=== PATIENT | male | born 1970 | race Caucasian/White ===

== ENCOUNTER 2016-10-31 07:29 | Emergency (ER) | payer SELFPAY ==
--- NOTE | 2016-11-01 10:00 | ER ---
ADMIT: 10/31/2016 RM/LOC: ER [facility] MR#: [id number] 2620 [facility] [address] [place], [place] [address] KATHIE GUTHRIE [address] [place] [address] Emergency Room Report SEX: M AGE: 46 : 1970 DATE: 10/31/2016 ADDENDUM: A 46-year-old white male coming in with back pain on his left flank. CT done for renal colic, this was negative, mainly stool. His urine had a few red cells but for his age, that is not abnormal. He does have chronic back pain as well as chronic pain disorder. At this time, we gave him Toradol 60 IM and discharged home. He can continue using [id number] medications for this, suggested maybe has a little constipation problems as well. CONDITION ON DISCHARGE: Improved. Pascual Davis MD/ lorena JOB #: [id number] CC: Pascual Davis MD, Attending Physician Tico Pagan MD, Family Physician
== END 2016-10-31 11:20 | disposition home or self-care (01) ==
LOC: ER 07:29
DX: M54.5 Low back pain (principal); G89.29 Other chronic pain; Z88.0 Allergy status to penicillin; Z88.8 Allergy status to other drugs, medicaments and biological substances; Z79.899 Other long term (current) drug therapy

== ENCOUNTER 2016-11-07 01:43 | Emergency (ER) | payer SELFPAY ==
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
== END 2016-11-07 03:30 | disposition home or self-care (01) ==
LOC: ER 01:43
DX: K59.00 Constipation, unspecified (principal); I10 Essential (primary) hypertension; Z87.442 Personal history of urinary calculi; Z88.0 Allergy status to penicillin; Z98.890 Other specified postprocedural states; Z79.899 Other long term (current) drug therapy

== ENCOUNTER 2016-11-07 19:29 | Inpatient (IN) | payer SELFPAY ==
[~2016-11-07] VITALS: Ht 177.8 cm; Wt 81.9 kg
--- NOTE | ~2016-11-07 | ECH ---
Transesophageal Echocardiography Report (TRENT) Demographics Patient Name JERRI, Date of Study 11/15/2016 KATHIE García Patient Number [id number] Visit Number [id number] Date of 1970 Room Number 529 Accession Number [id number] Gender Male Age 46 year(s) Referring Elissa Menjivar Construction Materials Tester Mariah Otto [facility] Physician Graham Terrazas MD Physician Interpreting Alicia ULLOA Certified Detention Deputy Physician Jose Supervising Ordering Physician Graham Terrazas MD/CORAL ULLOA Nurse Andreas Lopez Stress Technical Applications Scientist Conclusions Contractility Score Summary Normal Left Ventricular contractility was noted. Summary The estimated left ventricular ejection fraction is 55%. Mild left atrial enlargement. Normal valves with no evidence of endocarditis. Trivial mitral regurgitation. Aneurysmal interatrial septum. No evidence of atrial septal defect or patent foramen ovale by saline bubble study . Recommendation The patient was given the results of the exam during their hospital stay. Procedure Type of Study TRENT procedure:TRENT SF. Procedure Date Date: 11/15/2016 Start: 10:04 AM Technical Quality: Good visualization Additional Indications:bacteremia Appropriate Use Criteria: 9 Height: 70 inches Weight: 205 pounds BSA: 2.11 m Rhythm: Within normal limits HR: 98 bpm BP: 105/71 mmHg TRENT Performed By: Jose Vargas MD Type of Anesthesia: Moderate sedation Signature
--- NOTE | ~2016-11-07 | ECH ---
Transthoracic Echocardiography Report (TTE) Demographics Patient Name JERRI, Date of Study 11/09/2016 KATHIE García Patient Number [id number] Visit Number [id number] Date of 1970 Room Number 529 Accession Number [id number] Gender Male Age 46 year(s) Referring Elissa Menjivar Emergency Dispatch Operator Mariah Otto [facility] Physician Graham Terrazas MD Physician Interpreting Alicia ULLOA Assistant Education Director Physician Jose Supervising Ordering Physician Graham Terrazas MD/CORAL ULLOA Nurse Stress Sales Service Manager Conclusions Contractility Score Summary Normal Left Ventricular contractility was noted. Summary Technically adequate exam. The estimated left ventricular ejection fraction is 65%. Mild septal left ventricular hypertrophy. The left atrium is mildly dilated by LA volume index measurement. No significant valvular abnormalities. Recommendation The patient will be given the results of this study by the physician who ordered the exam. Procedure Type of Study TTE procedure:Echo Complete SF. Procedure Date Date: 11/09/2016 Start: 12:01 PM Technical Quality: Adequate visualization Indications:Fever of unknown origin. Additional Indications:bacteremia Appropriate Use Criteria: 9 Height: 70 inches Weight: 205 pounds BSA: 2.11 m Rhythm: Within normal limits HR: 81 bpm BP: 155/98 mmHg M-Mode/2D Measurements LV Diastolic Dimension: 5.76 cm LV Systolic Dimension: 3.75 cm LV Septum Diastolic: 1.12 cm LV PW Diastolic: 1.01 cm AO Root Dimension: 2.75 cm Cardiac Output: 6.8 l/min LA Dimension: 4.23 cm Cardiac Index: 3.22 l/min*m RV Diastolic Dimension: 2.64 cm LA volume index: 36 ml/m LVOT: 2.22 cm LVOT VTI: 21.7 cm RV Base: 3.3 cm LV Stroke volume: 83.95 ml RV Mid: 2.4 cm LV Stroke volume index: 39.79 ml/m RV Length: 7.8 cm TAPSE: 2.8 cm TDI-S': 15 cm/s Doppler Measurements AV Peak Velocity: 1.37 m/s MV Peak E-Wave: 1.06 m/s AV Peak Gradient: 7.51 mmHg MV Peak A-Wave: 0.94 m/s AV Mean Gradient: 4.35 mmHg MV E/A Ratio: 1.13 LVOT Peak Velocity: 1.12 m/s MV P1/2t: 50.9 msec AV Area (Continuity):3.63 cm MV Deceleration Time: 198.9 msec MV Area (PHT): 4.32 cm PV Peak Velocity: 0.91 m/s PV Peak Gradient: 3.33 mmHg RA Area: 15.97 cm Findings Left Ventricle The left ventricle is normal in size . Mild septal left ventricular hypertrophy. Diastolic assessment reveals normal relaxation. Right Ventricle Normal right ventricle structure and function. Left Atrium The left atrium is mildly dilated by LA volume index measurement. Right Atrium Normal right atrial size. Mitral Valve Normal mitral valve structure and function. Trivial mitral regurgitation by color Doppler. Aortic Valve Normal aortic valve structure and function. Tricuspid Valve Normal tricuspid valve structure and function. Pulmonic Valve Normal pulmonic valve structure and function. Pericardial Effusion No evidence of pericardial effusion. Miscellaneous Visualized portions of the aortic root and ascending aorta appear normal in size. Pleural Effusion No evidence of pleural effusion. Contractility Score LV regional wall motion:(0-Non visualized 1-Normal 2-Hypokinesis 3-Akinesis 4-Dyskinesis 5-Aneurysm) Signature
--- NOTE | ~2016-11-07 | CO ---
ADMIT: 11/07/2016 RM/LOC: 529 [facility] MR#: [id number] 2620 [facility] [address] [place], [place] [address] KATHIE GUTHRIE [address] [place] [address] Consultation SEX: M AGE: 46 : 1970 DATE OF CONSULTATION: 11/08/2016 ATTENDING PHYSICIAN: Josue Bowers MD CONSULTING PHYSICIAN: Josue Harmon MD REASON FOR CONSULTATION: Originally is anemia. You can see full dictated consult by ZAHRAA Jorge. Pavan is a 46-year- old male, who I have seen here. We were consulted like I said for anemia, but looked like his hemoglobin had dropped but now it is basically normal. The other thing with him he has significant constipation, not having a bowel movement, when he says for almost 2 weeks. Because of some back pain, he took some Percocet over the weekend for some chronic back pain. Says otherwise he does not routinely have problems with taking Percocet like that. At the time when I see him, the nurses report that he is spiking any fever, however, he tells me he is feeling better. He is less distended, does not have as much pain. He has bowel sounds. He is distended and maybe some diffuse pain but there are no acute findings in his abdomen currently by clinical exam. At this point he has, like I said, a longstanding history of some pain issues for his back. As I look through things, it looks like he had previous laparoscopic bilateral hernia repairs done by Dr. Wero guerrier in 2014. Multiple ER visits. At this point, like I said, he seems to be feeling a little bit of relief with the enema. His exam is fairly benign. Dr. Bowers is ordering some extra labs, brought in his antibiotics although I do not think we know exactly what we are covering by any means as we have no obvious source. His hemoglobin being stable, I do not think we need to jump into a colonoscopy right away. Obviously, he is going to need to get his bowels cleaned out and just starting to get those to move, but I do not know of if he needs to stay in the hospital for that as well unless we see some evidence of drop in his hemoglobin or blood in the stools. We will follow him along while he is here. Josue Harmon MD/ lorena JOB #: [id number] CC: Josue Bowers MD, Attending Physician Josue Bowers MD, Family Physician Josue Bowers MD
--- NOTE | 2016-11-12 12:25 | CO ---
ADMIT: 11/07/2016 RM/LOC: 529 [facility] MR#: [id number] 2620 [facility] [address] [place], [place] [address] KATHIE GUTHRIE [address] [place] [address] Consultation SEX: M AGE: 46 : 1970 DATE OF CONSULTATION: 11/08/2016 ATTENDING PHYSICIAN: Josue Bowers MD CONSULTING PHYSICIAN: Josue Harmon MD REASON FOR CONSULTATION: Anemia. HISTORY OF PRESENT ILLNESS: Pavan is a very pleasant 46-year-old male, who has been admitted to the ER for increased abdominal pain. Apparently, the patient has not been able have a bowel movement going on two weeks. His abdominal pain is throughout his abdomen and sharp in nature. He denies having any prior events like this before. Of note, he did have some low back pain on Monday for which he took 4 Percocet's for. Apparently, he had line around from previous surgery. He further denies any emesis, dark or bloody stools, shortness of breath, weakness, or lightheadedness. He does feel nauseous today, and the pain in his abdomen does kind of take his breath away. PAST MEDICAL HISTORY: Significant for: 1. Hypertension. 2. Anxiety. PAST SURGICAL HISTORY: 1. Right inguinal laparoscopic hernia repair performed by Dr. Conteh. 2. No prior EGDs or colonoscopies. ALLERGIES: PENICILLIN. MEDICATIONS: Well documented in chart. FAMILY HISTORY: Noncontributory. SOCIAL HISTORY: The patient denies any tobacco, alcohol, or illicit drug use. REVIEW OF SYSTEMS: CONSTITUTIONAL: The patient states some night sweats that have been going on for several months, but denies any fevers or chills. The rest of a comprehensive 10-point review of systems was performed and all other systems are negative. PHYSICAL EXAMINATION: GENERAL: The patient is in no acute distress. He is alert and oriented. HEENT: Head is normocephalic and atraumatic. EOMS are intact. Conjunctivae free of icterus, erythema, or pallor. Pinnae, free of deformities. Nose, midline. No tracheal deviation. NECK: Supple. SKIN: Negative for jaundice, clubbing, edema, pallor, or cyanosis. LUNGS: Normal respiratory effort. HEART: Distal pulses are intact. Regular rate and rhythm. ABDOMEN: Distended and tender diffuse throughout abdomen. Surgical scar ADMIT: 11/07/2016 RM/LOC: 529 [facility] MR#: [id number] [address] [address] KATHIE GUTHRIE [address] [address] Consultation SEX: M AGE: 46 : 1970 noted at the umbilicus, consistent with laparoscopic hernia repair. NEURO: Grossly intact. LABORATORY DATA: Hemoglobin improved to 11.6. ASSESSMENT: 1. Anemia. 2. Constipation. PLAN: As of now, with the patient's hemoglobin improving, we will be happy to do an outpatient colonoscopy for him. I discussed this plan with the patient which he has agreement of this plan, had all his questions answered, would like to proceed. Dr. Maritza Sprague is starting him on a bowel prep for constipation, which we endorse and hopefully get good results with that. Thanks for the consultation of this patient. ZAHRAA Jorge / Josue Harmon MD / modl JOB #: [id number] CC: Josue Bowers MD, Attending Physician Josue Bowers MD, Family Physician
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
[2016-11-22] MEDS ORDERED: ZESTRIL DPS10 MG PO (19:03)
[2016-11-22] MEDS ORDERED: KLONOPIN DPS1 MG PO (19:03)
[2016-11-22] MEDS ORDERED: COLACE-DPS100 MG PO (19:03)
[2016-11-22] MEDS ORDERED: MIRALAX PACKET17 GM PO (19:04)
[2016-11-22] MEDS ORDERED: FLEXERIL-DPS10 MG PO (19:04)
[2016-11-22] MEDS ORDERED: MS CONTIN DPS15 MG PO (19:04)
[2016-11-22] MEDS ORDERED: NICOTINE PATCH1 EAC1 TD (19:05)
[2016-11-22] MEDS ORDERED: PEPCID DPS20 MG PO (19:05)
[2016-11-22] MEDS ORDERED: ROCEPHIN DPS2 GM IV (19:07)
[2016-11-22] MEDS ORDERED: LIDOCREAM15 GM TP (19:07)
[2016-11-22] MEDS ORDERED: KLONOPIN DPS0.5 MG PO (19:08)
[2016-11-22] MEDS ORDERED: BENADRYL-DPS25 MG PO (19:08)
[2016-11-22] MEDS ORDERED: MAALOX DPS30 ML PO (19:10)
[2016-11-22] MEDS ORDERED: OXY IR DPS10 MG PO (19:11)
[2016-11-22] MEDS ORDERED: NEURONTIN DPS300 MG PO (19:11)
[2016-11-22] MEDS ORDERED: TYLENOL DPS325 MG PO (19:11)
[2016-11-22] MEDS ORDERED: NORMAL SALINE FL5 ML IV (19:12)
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
--- NOTE | 2016-12-17 13:06 | DS ---
ADMIT: 11/09/2016 RM/LOC: 529 [facility] MR#: [id number] [address] [place], [place] [address] KATHIE GUTHRIE [address] [place] [phone] General Discharge Summary SEX: M AGE: 46 : 1970 ADMISSION DATE: 11/09/2016 DISCHARGE DATE: 11/22/2016 CONSULTANTS: General Surgery, Infectious Disease, Neurosurgery, and Pain Management. PROCEDURES: Paravertebral biopsy, PICC line placement. FINAL DIAGNOSES: 1. MSSA bacteremia. 2. Paravertebral mass. 3. Osteomyelitis. 4. Ileus causing constipation. HISTORY OF PRESENT ILLNESS: The patient came in with acute abdominal pain, constipation, and low back pain. He said he had not had a bowel movement for over 2 weeks. He does mention that he recently took some leftover Percocet that he had. He had been trying enemas, suppositories, and had even been given a dose of Relistor in the ER, but he had minimal release, so he returned to the ER with the same complaints at that time. We admitted him to have further constipation management as well as the patient had a decrease in patient hemoglobin. It was 10.6 on date of admission, while the day prior, it was 11.8. HOSPITAL COURSE: The patient had had workup for blood cultures, became positive for methicillin-sensitive Staph aureus. He was started initially on IV vancomycin and Bactrim, but he continued to have fevers, so Infectious Disease was consulted. The patient was then started on cefazolin 2 g q.8 hours IV instead of the vancomycin and Bactrim. Workup was done for source of infection. CTA was negative. The patient also had two echoes throughout the hospital stay. No signs of endocarditis or abnormalities on the patient's heart valves. Ultimately, source of infection was not found, but of note, the patient's girlfriend does have chronic Staph infections which at least could be a possible exposure. PICC line was placed for long-term antibiotics. Ultimately, he was sent out with outpatient antibiotics for at least 6-8 weeks and follow up with Dr. Stevenson. Constipation. The patient was found have an ileus. Initially, we were concerned about the hemoglobin drop, but that remained stable throughout the admission after that initial draw. The patient received multiple doses of stool softeners, osmotic laxatives, etc. that did allow him to have some bowel movements. Throughout the stay, the patient continued to complain of low back pain and he continued to have these fevers, so Neurosurgery was consulted. We had ordered an MRI that showed evidence of lumbar spondylosis with a Schmorl node and a reduction in disk height L1-L2 and L2-L3. There is also an L2 hemangioma and also some abnormal signals at the T10 to T11 area as well as some soft tissue enhancement on the left paravertebral region. There was concern for possible abscess versus osteomyelitis. 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 UPEP and SPEP were also done, which were normal. The patient had a biopsy from [facility], showed that there were plasma cells in the soft tissue area. They also noticed some acute on chronic osteomyelitis and the T10 bone sample. 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 They felt that it is more likely consistent with his osteo. Further workup for cause of infection included hepatitis panel, HIV, which were all normal. The patient continued to have this low back pain throughout the stay even with resolvement of his constipation and improvement with antibiotics for his fever. Dr. Andrade from Pain Management was consulted and he put the patient on a specific pain regimen which did seem to provide some relief. Summary of patient's hospital stay shows that patient had MSSA bacteremia and also osteomyelitis, which patient was discharged on IV antibiotics for treatment. The patient was also found to have some degenerative disease and spondylosis of his lower spine. The patient was seen by both Neurosurgery and Pain Management, and ultimately patient was sent out on pain medication regimen. DISCHARGE MEDICATIONS: Medications at time of discharge include: 1. Rocephin 2 g IV q.12 hours for 6 weeks. 2. Colace 200 mg daily. 3. Flexeril 10 mg t.i.d. 4. Klonopin 1 mg b.i.d. 5. MiraLax 17 g b.i.d. 6. Pepcid 20 mg b.i.d. 7. Zestril 10 mg p.o. daily. 8. Habitrol 21 mg patch daily. 9. Lidocaine cream b.i.d. 10.Benadryl 25 mg p.o. q.6 hours p.r.n. 11.Klonopin 0.5 mg daily p.r.n. 12.Maalox q.6 hours p.r.n. 13.Neurontin 300 mg p.o. q.i.d. p.r.n. 14.OxyIR DBS 10 mg p.o. q.5 hours. 15.Tylenol 650 mg p.r.n. q.4 hours as needed. Also was sent out on normal saline flushes for PICC line. The patient had outpatient IV antibiotics set up. He also is to follow up with Infectious Disease as an outpatient. CODE STATUS: Full. Maritza Sprague MD Resident / Josue Bowers MD / lorena JOB #: [id number] CC: Josue Bowers MD, Attending Physician Josue Bowers MD, Family Physician
== END 2016-11-22 13:35 | disposition home or self-care (01) | DRG 478 ==
LOC: ER 19:29 → 5MS 23:00
PROVIDERS: ADMIT Family Medicine
PROC: 0KBJ3ZX Excision of Left Thorax Muscle, Percutaneous Approach, Diagnostic (ICD-10-PCS; principal; 2016-11-14)
PROC: 0PB43ZX Excision of Thoracic Vertebra, Percutaneous Approach, Diagnostic (ICD-10-PCS; principal; 2016-11-14)
PROC: 02HV33Z Insertion of Infusion Device into Superior Vena Cava, Percutaneous Approach (ICD-10-PCS; 2016-11-17)
DX: M46.24 Osteomyelitis of vertebra, thoracic region (principal); K56.7 Ileus, unspecified; I10 Essential (primary) hypertension; M46.44 Discitis, unspecified, thoracic region; R10.13 Epigastric pain; K59.00 Constipation, unspecified; F41.9 Anxiety disorder, unspecified; F10.21 Alcohol dependence, in remission; D64.9 Anemia, unspecified; F17.290 Nicotine dependence, other tobacco product, uncomplicated; M51.36 Other intervertebral disc degeneration, lumbar region; E87.6 Hypokalemia; B95.61 Methicillin susceptible Staphylococcus aureus infection as the cause of diseases classified elsewhere; D72.822 Plasmacytosis

== ENCOUNTER 2016-12-20 19:36 | Emergency (ER) | payer SELFPAY ==
[~2016-12-20 19:36] MED LIST: BENADRYL-DPS25 MG PO; COLACE-DPS100 MG PO; FLEXERIL-DPS10 MG PO; KLONOPIN DPS0.5 MG PO; KLONOPIN DPS1 MG PO; LIDOCREAM15 GM TP; MAALOX DPS30 ML PO; MIRALAX PACKET17 GM PO; MS CONTIN DPS15 MG PO; NEURONTIN DPS300 MG PO; NICOTINE PATCH1 EAC1 TD; NORMAL SALINE FL5 ML IV; OXY IR DPS10 MG PO; PEPCID DPS20 MG PO; ROCEPHIN DPS2 GM IV; TYLENOL DPS325 MG PO; ZESTRIL DPS10 MG PO
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
== END 2016-12-20 23:06 | disposition home or self-care (01) ==
LOC: ER 19:36
DX: R52 Pain, unspecified (principal); R78.81 Bacteremia; M46.40 Discitis, unspecified, site unspecified; F41.9 Anxiety disorder, unspecified; I10 Essential (primary) hypertension; F17.200 Nicotine dependence, unspecified, uncomplicated; Z79.899 Other long term (current) drug therapy; Z87.442 Personal history of urinary calculi

== ENCOUNTER → 2016-12-29 | Outpatient (CLI) | payer SELFPAY | END | disposition home or self-care (01) | LOC: RAD.S 07:50 | DX: G95.9 Disease of spinal cord, unspecified (principal) ==

== ENCOUNTER → 2017-01-31 | Outpatient (CLI) | payer SELFPAY | END | disposition home or self-care (01) | LOC: PTH.S 15:05 | DX: G95.9 Disease of spinal cord, unspecified (principal) ==

== ENCOUNTER → 2017-02-02 | Outpatient (CLI) | payer SELFPAY | END | disposition home or self-care (01) | LOC: RAD.S 15:33 | DX: G95.9 Disease of spinal cord, unspecified (principal) ==